=== PATIENT | female | born 1945 | race Caucasian/White ===

== ENCOUNTER → 2016-11-24 | Outpatient (CLI) | payer MEDICARE ==
--- NOTE | 2016-11-27 11:15 | Diagnostic Imaging Report ---
Bilateral screening mammogram The current study was also evaluated with a Computer Aided Detection (CAD) system. INDICATION: Screening. No current complaints stated on the questionnaire. COMPARISON: 11/02/15. FINDINGS: The breasts are composed of scattered fibroglandular densities. There are scattered benign-appearing calcifications. Allowing for technique and positional differences, no suspicious change is seen. IMPRESSION: No significant change. ACR BI-RADS Category 2: Benign findings. Result letter will be mailed to the patient. Note: At least 10% of breast cancer is not imaged by mammography. Dictated by: Dictated on workstation # [id number]
== END ==
LOC: RAD 10:01
PROVIDERS: ATTEND Internal Medicine
DX: Z12.31 Encounter for screening mammogram for malignant neoplasm of breast (principal)
CPT/HCPCS: 77067

== ENCOUNTER → 2017-11-26 | Outpatient (CLI) | payer MEDICARE ==
--- NOTE | 2017-11-26 11:29 | Diagnostic Imaging Report ---
INDICATION: Routine screening. COMPARISON: 11/24/2016 and 11/02/2015. TECHNIQUE: Screening digital mammography was performed bilaterally with a Computer Aided Detection (CAD) system. FINDINGS: Scattered fibroglandular densities are identified bilaterally. The parenchymal pattern is stable. No dominant mass or malignant appearing microcalcifications are seen. The axillae are unremarkable. IMPRESSION: No mammographic features suspicious for malignancy are identified. ACR BI-RADS Category 1: Negative. Result letter will be mailed to the patient. Note: At least 10% of breast cancer is not imaged by mammography. Dictated by: Dictated on workstation # [id number]
== END ==
LOC: RAD 09:18
PROVIDERS: ATTEND Internal Medicine
DX: Z12.31 Encounter for screening mammogram for malignant neoplasm of breast (principal)
CPT/HCPCS: 77067

== ENCOUNTER → 2018-11-29 | Outpatient (CLI) | payer MEDICARE ==
--- NOTE | 2018-11-29 19:12 | Diagnostic Imaging Report ---
INDICATION: Screening. The current study was also evaluated with a Computer Aided Detection (CAD) system. Comparison made with prior examination from 11/26/2017 back through 10/24/2012. 3D tomosynthesis was performed and reviewed. FINDINGS: There are scattered fibroglandular densities bilaterally. There are few benign-type calcifications. There is no dominant mass, spiculated lesion, or suspicious calcification identified. The skin, nipples, and axillae are unremarkable. IMPRESSION: Benign. ACR BI-RADS Category 2: Benign findings. Result letter will be mailed to the patient. Note: At least 10% of breast cancer is not imaged by mammography. Dictated by: Dictated on workstation # [id number]
== END ==
LOC: RAD 08:50
PROVIDERS: ATTEND Internal Medicine
DX: Z12.31 Encounter for screening mammogram for malignant neoplasm of breast (principal)
CPT/HCPCS: 77067

== ENCOUNTER → 2018-12-04 | Outpatient (CLI) | payer MEDICARE ==
--- NOTE | 2018-12-04 11:55 | Diagnostic Imaging Report ---
CLINICAL INDICATION: Patient with familial hypercholesterolemia. COMPARISON: None EXAM: Real-time carotid Doppler duplex imaging is performed bilaterally. Peak systolic velocity, ICA/CCA peak systolic ratio, spectral analysis, and vascular morphology are studied. FINDINGS: ARTERY VELOCITY Right Left CCA 1.22 m/s 1.46 m/s ICA 1.04 m/s 0.99 m/s ECA 0.76 m/s 1.07 m/s ICA/CCA 0.85 0.68 VERT.ART Antegrade Antegrade There is mild atherosclerotic disease involving the right cervical ICA bulb which shows no significant grayscale stenosis. IMPRESSION: There is no grayscale or Doppler evidence of significant vascular stenosis. Dictated by: Dictated on workstation # [id number]
== END ==
LOC: RAD 08:49
PROVIDERS: ATTEND Internal Medicine
DX: I65.23 Occlusion and stenosis of bilateral carotid arteries (principal); E78.01 Familial hypercholesterolemia; M17.11 Unilateral primary osteoarthritis, right knee
CPT/HCPCS: 93880

== ENCOUNTER 2019-03-31 05:40 | Outpatient (CLI) | payer MEDICARE ==
[~2019-03-31] VITALS: Ht 162.6 cm; Wt 61.2 kg
[2019-03-31] MEDS ORDERED: MELO7.5T46 PO (12:27)
[2019-03-31] MEDS ORDERED: L.AC1CAP6 PO (12:27)
[2019-03-31] MEDS ORDERED: FISH1CAP15 PO (12:27)
[2019-03-31] MEDS ORDERED: CHOL20003 PO (12:27)
[2019-03-31] MEDS ORDERED: ASPI-586 PO (12:27)
== END 2019-03-31 12:33 ==
LOC: PREOP 05:40
PROVIDERS: ATTEND Surgery
DX: Z01.818 Encounter for other preprocedural examination (principal); Z12.11 Encounter for screening for malignant neoplasm of colon

== ENCOUNTER 2019-04-07 06:32 | Day surgery (SDC) | payer MEDICARE ==
[~2019-04-07] VITALS: Ht 162.6 cm; Wt 61.2 kg
[~2019-04-07 06:32] MED LIST: ASPI-586 PO; CHOL20003 PO; FISH1CAP15 PO; L.AC1CAP6 PO; MELO7.5T46 PO
[2019-04-07] MEDS ORDERED: LACTATED RINGERS 1,000 ML IV ONE (06:49)
[2019-04-07] MEDS ORDERED: PROPOFOL INJECTION 50 ML IV ONE (07:03)
[2019-04-07] MEDS ORDERED: LACTATED RINGERS 1,000 ML IV STA (07:37)
[2019-04-07 07:39] VITALS: BP 134/66
--- NOTE | 2019-04-07 08:10 | Progress Note-Pre Operative ---
Pre-Operative Progress Note H&P Reviewed The H&P was reviewed, patient examined and no changes noted. Time Seen by Provider: 08:03 Date H&P Reviewed: Apr 07, 2019 Time H&P Reviewed: 08:04 Pre-Operative Diagnosis: Constipation, Screening Colonoscopy KATIE NGUYEN DO Apr 07, 2019 08:10
[2019-04-07 08:40] VITALS: BP 134/63
[2019-04-07 08:45] VITALS: BP 134/65
[2019-04-07 08:50] VITALS: BP 134/65
--- NOTE | 2019-04-07 08:57 | Progress Note-Post Operative ---
Post-Operative Progess Note Surgeon (s)/Stick Welder (s) Surgeon KATIE NGUYEN DO Stick Welder: none Pre-Operative Diagnosis Constipation, Screening Colonoscopy Post-Operative Diagnosis Colon polyps Diverticula Melanosis Coli Internal Hemorrhoids Procedure & Operative Findings Date of Procedure 04/07/19 Procedure Performed/Findings Colon with snare Anesthesia Type IV sedation by LOGISTICS ENGINEERING MANAGER Estimated Blood Loss Estimated blood loss (mL): scant Specimens/Packing Specimens Removed Colon polyps (Desc, Sigmoid, Rectum) KATIE NGUYEN DO Apr 07, 2019 08:57
--- NOTE | 2019-04-07 09:01 | Endoscopy Discharge Instruct ---
Endo Procedure/Findings Findings 1.: Polyp 2.: Diverticulosis 3.: Internal Hemorrhoids 4.: Other Findings (Melanosis coli) Discharge Instructions - Activity: You might feel a little sleepy until tomorrow. This is due to the medicine you received to relax you. Until tomorrow, you should: NOT drive a car, operate machinery or power tools. NOT drink any alcoholic beverages. NOT make any important decisions or sign importortant papers. Do not return to work until tomorrow, unless otherwise instructed. Resume previous activities tomorrow. Diet: Start by taking liquids. If you tolerate liquids, advance to solid food. make an appointment for one week. Instructions: 1.: Colonscopy in 5 years Notify Physician - If you experience excessive bleeding, unusual abdominal pain, fever, or chest pain, contact your doctor immediately. Follow-Up: - I have received and understand the above instructions and will call my doctor if I have any further questions. Patient Signature Date Nurse Signature Other (Relationship) KATIE NGUYEN DO Apr 07, 2019 09:01
[2019-04-07 09:20] VITALS: BP 140/68
[2019-04-07 09:40] VITALS: BP 140/68
--- NOTE | 2019-04-07 15:24 | OPERATIVE REPORT ---
DATE OF SERVICE: 04/07/2019 PREOPERATIVE DIAGNOSES: Constipation screening colonoscopy. POSTOPERATIVE DIAGNOSES: 1. Colon polyps. 2. Diverticular. 3. Melanosis coli. 4. Internal hemorrhoids. PROCEDURE PERFORMED: Colonoscopy with snare polypectomy. SURGEON: Eze Rowland DO MEDICAL RECORDS ASSISTANT: None. ANESTHESIA: IV sedation by FORGE SHOP MACHINE REPAIRER. SPECIMEN: One polyp from the descending colon, one polyp from the sigmoid colon and one polyp from the rectum. BLOOD LOSS: Scant. FLUIDS: Per Anesthesia. INDICATION FOR PROCEDURE: The patient is a 73-year-old female who is having some constipation needed colonoscopy. FINDINGS: The patient had 3 polyps, one in the descending colon, one in the sigmoid colon and the rectum. She also had diverticula and then throughout the colon, she had melanosis coli and she had some small internal hemorrhoids. PROCEDURE NOTE: After informed consent was obtained, the patient was brought to the endoscopy suite and placed in the left lateral decubitus position. She was administered IV sedation by the FORGE SHOP MACHINE REPAIRER who then monitored her vitals the entire time, heart rate, blood pressure and pulse ox and the scope was inserted, pushed all the way to 150 cm, able to get to the cecum, took a picture of appendiceal orifice. On the way in, noted diverticula, took picture of this, slowly withdrew the scope insufflating to look circumferentially at the laughlin looking the cecum, up the ascending colon to the hepatic flexure, then down the transverse colon to the splenic flexure, then down into the descending colon. In the descending colon, saw small polyp, took a picture of this and then did a snare polypectomy, continued down and in the sigmoid, saw another small flat polyp, did snare polypectomy of this. Continued down into the rectum, saw another flat polyp, took a picture and then did a snare polypectomy of this and then continued to pull the scope back into the rectal vault, retroflexed in rectal vault and saw some internal hemorrhoids and throughout the entire colon saw melanosis coli. This may be in part of the cause of her constipation. At this point, I then removed the scope. The patient tolerated the procedure. She was recovered in endoscopy suite. Job ID: [id number] DocumentID: [id number] Dictated Date: 04/07/2019 09:00:38 Bench Examiner Date: 04/07/2019 15:23:59 Dictated By: EZE ROWLAND DO
== END 2019-04-07 09:45 | disposition home or self-care (01) ==
LOC: ENDO 06:32
PROVIDERS: ATTEND Surgery
DX: D12.4 Benign neoplasm of descending colon (principal); K64.8 Other hemorrhoids; K63.5 Polyp of colon; K62.1 Rectal polyp; K59.00 Constipation, unspecified; K57.30 Diverticulosis of large intestine without perforation or abscess without bleeding; K63.89 Other specified diseases of intestine; E78.5 Hyperlipidemia, unspecified; Z90.49 Acquired absence of other specified parts of digestive tract; Z90.710 Acquired absence of both cervix and uterus; Z79.82 Long term (current) use of aspirin
CPT/HCPCS: 88305

== ENCOUNTER → 2020-04-01 | Outpatient (CLI) | payer MEDICARE ==
--- NOTE | 2020-04-01 10:53 | Diagnostic Imaging Report ---
PROCEDURE: US carotid duplex, bilateral. TECHNIQUE: Multiple real-time grayscale images were obtained over the carotid arteries in various projections, bilaterally. Additional spectral analysis and color Doppler duplex images were also obtained. INDICATION: Carotid artery stenosis. FINDINGS: The previous carotid Doppler exam of 12/04/2018 failed to show any sign of hemodynamically significant stenosis of either carotid system. On this exam, there is mild soft plaque formation in both carotid systems. The flow velocities failed to show any sign of a hemodynamically significant stenosis. Both vertebral arteries were identified and there was antegrade flow bilaterally. IMPRESSION: There is mild atherosclerosis disease involving both carotid systems. There is still no evidence for hemodynamically significant stenosis of the common or internal carotid arteries. Parameters based on the consensus panel Church-Scale and Doppler ultrasound criteria published June 2003, Radiology, Volume 229. DOPPLER (peak systolic velocity M/S Right Left CCA 1.03 1.43 ICA Proximal 0.82 0.67 ICA Mid 0.86 0.86 ICA Distal 0.88 0.97 RATIO 0.85 0.68 ECA 0.66 1.10 VERT 0.45 0.74 Dictated by: Dictated on workstation # [id number]
== END ==
LOC: RAD 09:03
PROVIDERS: ATTEND Internal Medicine
DX: I65.23 Occlusion and stenosis of bilateral carotid arteries (principal)
CPT/HCPCS: 93880

== ENCOUNTER → 2020-05-12 | Outpatient (CLI) | payer MEDICARE ==
[~2020-05-12] VITALS: Ht 160 cm; Wt 59.0 kg
[~2020-05-12] MED LIST changes: +CATHETER FLUSH 10 ML SYR IV PRN; +REGADENOSON 0.4 MG/5 ML SYR (LEXISCAN) IV ONE
--- NOTE | 2020-05-12 11:32 | Cardiology Stress Test Report ---
Stress Test Report Date of Procedure/Referring: Date of Procedure: May 12, 2020 PCP Librado Hernandez DO Admitting Physician Librado Hernandez DO Summary: Patient receive a resting and stress dose of Myoview, images were acquired and reviewed in the short axis view, horizontal long axis view and vertical long axis view. TID: 0.97 SSS: 1 SDS: 1 EF: 81 1. No significant ischemia or infarction on SPECT images 2. Normal left ventricular size, EF 81 percent CHRISTIE GROVES MD May 12, 2020 11:32
== END ==
LOC: CARD 06:34
PROVIDERS: ATTEND Internal Medicine
DX: I10 Essential (primary) hypertension (principal); R06.00 Dyspnea, unspecified; R00.2 Palpitations
CPT/HCPCS: 78452; 93017; A9502

== ENCOUNTER → 2021-05-12 | Outpatient (CLI) | payer MEDICARE ==
[~2021-05-12] MED LIST changes: -CATHETER FLUSH 10 ML SYR IV PRN; -REGADENOSON 0.4 MG/5 ML SYR (LEXISCAN) IV ONE
--- NOTE | 2021-05-12 15:43 | Diagnostic Imaging Report ---
INDICATION: Lumbago. COMPARISON: None. FINDINGS: Frontal, lateral and oblique radiographic views of the lumbar spine were obtained. 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 There is also exaggeration of kyphosis at L2-L3 with slight grade 1 retrolisthesis. Vertebral body heights are maintained. There is no convincing evidence of acute fracture. There are however advanced multilevel degenerative changes consisting of prominent intervertebral disc height loss with endplate sclerosis and osteophyte formations. These changes are greatest at the L2-L3 and L3-L4 levels. IMPRESSION: 1. No acute fracture or dislocation lumbar spine. 2. Advanced multilevel degenerative changes as described above. Dictated by: Dictated on workstation # [id number]
== END ==
LOC: RAD 11:43
PROVIDERS: ATTEND Internal Medicine
DX: M47.816 Spondylosis without myelopathy or radiculopathy, lumbar region (principal); M51.36 Other intervertebral disc degeneration, lumbar region; M41.86 Other forms of scoliosis, lumbar region; M43.16 Spondylolisthesis, lumbar region
CPT/HCPCS: 72110

== ENCOUNTER → 2021-07-11 | Outpatient (CLI) | payer MEDICARE ==
--- NOTE | 2021-07-11 13:26 | Diagnostic Imaging Report ---
INDICATION: Cough. History of pneumonia. COMPARISON: 11/24/2014 FINDINGS: Frontal and lateral radiograph views of the chest were obtained and show interval development of elongated masslike consolidative opacity within the right perihilar region that measures 5.1 x 1.6 cm. This is new when compared to 11/24/2014. Left lung is relatively clear. There is no large effusion or pneumothorax on either side. Cardiac silhouette and pulmonary vasculature are within normal limits. Osseous structures show no gross acute abnormalities. IMPRESSION: 1. Elongated masslike opacity within the right perihilar region. While this could be on the basis of area of focal pneumonia, soft tissue lesion cannot be excluded. Correlation with postcontrast CT chest is recommended. Dictated by: Dictated on workstation # [id number]
== END ==
LOC: RAD 12:43
PROVIDERS: ATTEND Internal Medicine
DX: J18.1 Lobar pneumonia, unspecified organism (principal)
CPT/HCPCS: 71046

== ENCOUNTER → 2021-07-13 | Outpatient (CLI) | payer MEDICARE ==
[~2021-07-13] MED LIST changes: +CATHETER FLUSH 10 ML SYR IV PRN; +HOLD METFORMIN - RECEIVED CONTRAST 20 ML VIAL IV SCH; +IOHEXOL 350 MG/ML 100 ML (OMNIPAQUE 350) VIAL IV ONE; +NS 100 ML (IVPB) BAG IV ONE
[2021-07-13 14:25] LABS: CREATININE SERUM 0.73 MG/DL (0.60-1.30)
--- NOTE | 2021-07-13 15:39 | Diagnostic Imaging Report ---
EXAMINATION: CT chest with intravenous contrast. TECHNIQUE: Multiple contiguous axial images were obtained through the chest after the uneventful administration of intravenous contrast. All CT scans use one or more of the following dose optimizing techniques: automated exposure control, MA and/or KvP adjustment based on patient size and exam type or iterative reconstruction. HISTORY: LOBAR PNEUMONIA COMPARISON: Chest radiograph from 07/11/2021. FINDINGS: Thyroid: The thyroid is normal. Mediastinum: Heart size is normal without significant pericardial effusion. Calcifications of the aorta and coronary vessels. Thoracic aorta is normal in caliber. No suspicious lymphadenopathy. Lungs and airways: There are patchy areas of groundglass consolidation seen throughout both lungs with the largest area of consolidation seen within the right upper lobe. No pleural effusion or pneumothorax. The airways are normal. Upper abdomen: Gallbladder is surgically absent. Musculoskeletal: Degenerative changes of the spine without suspicious osseous lesion or compression fracture. IMPRESSION: 1. Patchy groundglass consolidation is seen throughout both lungs concerning for a multifocal pneumonia. Dictated by: Dictated on workstation # [id number]
== END ==
LOC: RAD 14:00
PROVIDERS: ATTEND Internal Medicine
DX: J18.1 Lobar pneumonia, unspecified organism (principal)
CPT/HCPCS: 36415; 71260; 82565; 84520

== ENCOUNTER → 2021-07-25 | Outpatient (CLI) | payer MEDICARE ==
[~2021-07-25] MED LIST changes: -CATHETER FLUSH 10 ML SYR IV PRN; -HOLD METFORMIN - RECEIVED CONTRAST 20 ML VIAL IV SCH; -IOHEXOL 350 MG/ML 100 ML (OMNIPAQUE 350) VIAL IV ONE; -NS 100 ML (IVPB) BAG IV ONE
--- NOTE | 2021-07-25 13:58 | Diagnostic Imaging Report ---
INDICATION: Pneumonia. TIME OF EXAM: 1:39 p.m. COMPARISON: Correlation is made with prior chest from 07/11/2021. FINDINGS: Heart size is normal. The infiltrate in the right upper lobe shows significant improvement. There is minimal residual infiltrate noted. The remainder of the lung fraser are clear. There is no effusion or pneumothorax. IMPRESSION: Partial clearing of right upper lobe infiltrate when compared with exam from 07/11/2021. Dictated by: Dictated on workstation # [id number]
== END ==
LOC: RAD 13:09
PROVIDERS: ATTEND Internal Medicine
DX: J18.1 Lobar pneumonia, unspecified organism (principal); R91.8 Other nonspecific abnormal finding of lung field
CPT/HCPCS: 71045

== ENCOUNTER → 2021-09-16 | Outpatient (CLI) | payer MEDICARE ==
--- NOTE | 2021-09-16 12:51 | Diagnostic Imaging Report ---
INDICATION: Routine screening. Comparison is made with prior mammogram from 11/29/2018 and 11/26/2017. 2-D and 3-D bilateral screening mammography was performed with CAD. Both breasts are heterogeneously dense, limiting the sensitivity of mammography. The parenchymal pattern is stable. No mass or malignant-appearing microcalcifications are seen. Axillae are unremarkable. IMPRESSION: No mammographic features suspicious for malignancy are identified. BI-RADS Category 1 ACR BI-RADS Category 1: Negative. Result letter will be mailed to the patient. Note: At least 10% of breast cancer is not imaged by mammography. Dictated by: Dictated on workstation # [id number]
== END ==
LOC: RAD 10:21
PROVIDERS: ATTEND Internal Medicine
DX: Z12.31 Encounter for screening mammogram for malignant neoplasm of breast (principal)
CPT/HCPCS: 77063; 77067

== ENCOUNTER → 2021-11-11 | Outpatient (CLI) | payer MEDICARE | LOC: CARD 08:30 | PROVIDERS: ATTEND Internal Medicine | DX: R00.2 Palpitations (principal) | CPT/HCPCS: 93225; 93226 ==

== ENCOUNTER → 2021-11-28 | Outpatient (CLI) | payer MEDICARE ==
[~2021-11-28] MED LIST changes: +CATHETER FLUSH 10 ML SYR IVP PRN; +REGADENOSON 0.4 MG/5 ML SYR (LEXISCAN) IV ONE
[2021-11-28 08:02] VITALS: BP 181/70
--- NOTE | 2021-11-28 11:45 | Cardiology Stress Test Report ---
Stress Test Report Date of Procedure/Referring: Date of Procedure: Nov 28, 2021 PCP Bri Hernandez DO Admitting Physician Bri Hernandez DO Indications: Palpitation Baseline Vital Signs Vital Signs Date Time Temp Pulse Resp B/P (MAP) Pulse Ox O2 Delivery O2 Flow Rate FiO2 11/28/21 08:02 67 181/70 (107) Summary: Patient receive a resting and stress dose of Myoview, images were acquired and reviewed in the short axis view, horizontal long axis view and vertical long axis view. TID: 0.96 SSS: 3 SDS: 3 EF: 77 1. No significant ischemia or infarction on SPECT images 2. Normal left ventricular size and systolic function, EF 77% Copy Copies To 1: BRI HERNANDEZ BASHAR J MD Nov 28, 2021 11:45
== END ==
LOC: CARD 07:00
PROVIDERS: ATTEND Internal Medicine
DX: R00.2 Palpitations (principal); I10 Essential (primary) hypertension
CPT/HCPCS: 78452; 93017; A9502

== ENCOUNTER → 2021-11-29 | Outpatient (CLI) | payer MEDICARE ==
[~2021-11-29] MED LIST changes: -CATHETER FLUSH 10 ML SYR IVP PRN; -REGADENOSON 0.4 MG/5 ML SYR (LEXISCAN) IV ONE
== END ==
LOC: CARD 14:30
PROVIDERS: ATTEND Internal Medicine
DX: I51.7 Cardiomegaly (principal); I35.1 Nonrheumatic aortic (valve) insufficiency
CPT/HCPCS: 93306

== ENCOUNTER 2022-03-16 09:56 | Outpatient (RCR) | payer MEDICARE | END 2022-03-19 | disposition home or self-care (01) | PROVIDERS: ATTEND Internal Medicine | DX: M54.59 Other low back pain (principal); I10 Essential (primary) hypertension ==

== ENCOUNTER 2022-04-17 11:07 | Outpatient (RCR) | payer MEDICARE | END 2022-04-19 | disposition home or self-care (01) | PROVIDERS: ATTEND Internal Medicine | DX: M54.59 Other low back pain (principal); I10 Essential (primary) hypertension ==

== ENCOUNTER → 2022-04-19 | Outpatient (CLI) | payer MEDICARE ==
--- NOTE | 2022-04-19 16:15 | Diagnostic Imaging Report ---
PROCEDURE: US carotid duplex, bilateral. INDICATION: Hypertension, tachycardia. History of carotid artery disease. TECHNIQUE: Multiple real-time grayscale images were obtained over the carotid arteries in various projections bilaterally. Additional spectral analysis and color Doppler and Duplex images were also obtained. CORRELATION: None FINDINGS: Right carotid circulation: Color images demonstrate mild scattered atherosclerotic plaquing throughout the right common, internal and external carotid arteries. The right common carotid artery is normal in course and caliber. The right internal carotid artery is patent. No hemodynamically significant stenosis is present at this time. Right external carotid artery is patent. Left carotid circulation: Color images demonstrate mild scattered atherosclerotic plaquing throughout the left common, internal and external carotid arteries. The left common carotid artery is normal in course and caliber. The left internal carotid artery is patent. No hemodynamically significant stenosis is present at this time. Left external carotid artery is patent. Antegrade flow in the bilateral vertebral arteries. DOPPLER (peak systolic velocity M/S Right Left CCA .98 1.09 ICA Proximal .73 .64 ICA Mid .92 .76 ICA Distal .82 1.04 RATIO .94 .95 ECA .46 .78 VERT .53 .51 IMPRESSION: 1. Mild diffuse atherosclerosis involving the carotid arteries. 2. No sonographic evidence to suggest a hemodynamically significant stenosis of the internal carotid arteries at this time. Parameters based on the consensus panel Church-Scale and Doppler ultrasound criteria published June 2003, Radiology, Volume 229. Dictated by: Dictated on workstation # [id number]
== END ==
LOC: RAD 13:00
PROVIDERS: ATTEND Internal Medicine
DX: I65.23 Occlusion and stenosis of bilateral carotid arteries (principal); I10 Essential (primary) hypertension
CPT/HCPCS: 93880

== ENCOUNTER 2022-04-20 11:04 | Outpatient (RCR) | payer MEDICARE | END 2022-05-19 | disposition home or self-care (01) | PROVIDERS: ATTEND Internal Medicine | DX: M54.59 Other low back pain (principal); I10 Essential (primary) hypertension ==

== ENCOUNTER → 2022-10-10 | Outpatient (CLI) | payer MEDICARE ==
--- NOTE | 2022-10-10 16:54 | Diagnostic Imaging Report ---
TECHNIQUE: 3 bilateral screening mammogram The current study was also evaluated with a Computer Aided Detection (CAD) system. COMPARISONS: 09/16/2021, 11/29/2018 and 11/26/2017. There are no current complaints. FINDINGS: There are scattered fibroglandular densities in both breasts which could obscure a lesion. Overall, there does not appear to have been any significant change when compared to the prior exam. No primary or secondary sign of malignancy is noted. IMPRESSION: 1. There is no radiographic evidence for malignancy. 2. BI-RADS CATEGORY 1 NEGATIVE ACR BI-RADS Category 1: Negative. Result letter will be mailed to the patient. Note: At least 10% of breast cancer is not imaged by mammography. Dictated by: Dictated on workstation # [id number]
== END ==
LOC: RAD 08:43
PROVIDERS: ATTEND Internal Medicine
DX: Z12.31 Encounter for screening mammogram for malignant neoplasm of breast (principal)
CPT/HCPCS: 77063; 77067

== ENCOUNTER 2023-02-15 10:28 | Outpatient (RCR) | payer MEDICARE | END 2023-02-16 | disposition home or self-care (01) | PROVIDERS: ATTEND Internal Medicine | DX: M99.03 Segmental and somatic dysfunction of lumbar region (principal) ==

== ENCOUNTER 2023-03-02 15:37 | Outpatient (RCR) | payer MEDICARE | END 2023-03-19 | disposition home or self-care (01) | PROVIDERS: ATTEND Internal Medicine | DX: M99.03 Segmental and somatic dysfunction of lumbar region (principal); I10 Essential (primary) hypertension ==

== ENCOUNTER 2023-04-09 13:27 | Outpatient (CLI) | payer MEDICARE | END 2023-04-09 14:00 | LOC: SLEEP 13:27 | PROVIDERS: ATTEND Nurse Practitioner | DX: G47.33 Obstructive sleep apnea (adult) (pediatric) (principal) | CPT/HCPCS: G0399 ==